=== PATIENT | female | born 1970 | race Caucasian/White ===

== ENCOUNTER 2019-10-21 12:32 | Outpatient (CLI) | payer BC, SELFPAY ==
--- NOTE | 2019-10-21 12:15 | XRR_ITS ---
PROCEDURE INFORMATION: Exam: XR Abdomen, 1 View Exam date and time: 10/21/2019 12:48 PM Age: 49 years old Clinical indication: Condition or disease; Kidney or ureter condition; Calculus (stone) in ureter; Prior surgery; Surgery date: 6+ months; Surgery type: Hyst/ tubal; Patient HX: Follow up; Additional info: Ureteral stone TECHNIQUE: Imaging protocol: XR of the abdomen. Views: Frontal supine view of the abdomen. 1 View. COMPARISON: CR XR KUB [id number] 10/16/2018 1:56 PM FINDINGS: Gastrointestinal tract: The bowel gas pattern is nonspecific. No bowel dilation. Organs: Bowel material overlies both kidneys. Again noted is a 2 mm calcified stone in the projection of the lower pole collecting system of the right kidney this finding is stable compared to prior examination. This finding resides between the soft L2 and L3 transverse process level. Bones/joints: Unremarkable. XR/XR KUB [id number] IMPRESSION: 1. No acute findings. 2. Stable 2 mm right renal caliceal stone
== END 2019-10-21 12:33 | disposition home or self-care (01) ==
LOC: RAD 12:37
PROVIDERS: PCP Nurse Practitioner Family; Visit Provider Urology
DX: N20.1 Calculus of ureter (principal); N20.0 Calculus of kidney
CPT/HCPCS: 74018; 81001

== ENCOUNTER 2020-05-03 12:40 | Outpatient (CLI) | payer BC, SELFPAY ==
--- NOTE | 2020-05-03 13:00 | XR_ITS ---
WS: [id number] HIP WITH PELVIS LEFT TECHNIQUE: 3 views of the left hip with pelvis CLINICAL INFORMATION: PAIN IN LEFT HIP COMPARISON: None. FINDINGS: Moderate degenerative arthritis left hip with joint space narrowing. No acute fractures. Normal femor al neck. Left pelvic phleboliths. XR/XR hip LT 2-3V wo/w pel* [id number] IMPRESSION: Moderate degenerative arthritis left hip with joint space narrowing. No acute f ractures.
== END 2020-05-03 12:41 | disposition home or self-care (01) ==
LOC: RADWPI 12:43
PROVIDERS: PCP Nurse Practitioner Family; Visit Provider Nurse Practitioner Family
DX: R26.89 Other abnormalities of gait and mobility (principal); M16.12 Unilateral primary osteoarthritis, left hip
CPT/HCPCS: 73502

== ENCOUNTER 2020-06-07 15:11 | Outpatient (CLI) | payer BC, SELFPAY ==
--- NOTE | 2020-06-07 15:14 | MM_ITS ---
WS: [id number] BILATERAL DIGITAL SCREENING MAMMOGRAPHY WITH CAD CLINICAL INFORMATION: SCREENING HISTORY: Screening mammogram. No current complaints. COMPARISON: TECHNIQUE: Bilateral CC and MLO views. FINDINGS: Scattered fibroglandular densities bilaterally. No suspicious focal mass, asymmetry, calcifications, or architectural distortion. No evidence of malignancy. MM/[id number] IMPRESSION: BI-RADS: 1-Negative FOLLOW UP: 1 Year Follow-up Recommend return to annual screening mammography.
== END 2020-06-07 15:12 | disposition home or self-care (01) ==
LOC: RADSHAW 15:12
PROVIDERS: PCP Nurse Practitioner Family; Visit Provider Nurse Practitioner Family
DX: Z12.31 Encounter for screening mammogram for malignant neoplasm of breast (principal)
CPT/HCPCS: 77067

== ENCOUNTER 2022-01-09 15:12 | Outpatient (CLI) | payer BC, SELFPAY ==
--- NOTE | 2022-01-09 15:30 | XR_ITS ---
WS: [id number] KUB, AP view, 01/11/2022 Clinical Data: Urolithiasis Comparison: KUB, 10/21/2019. Findings: No abnormal intraabdominal masses or calcifications are seen. There is no dilatated small bowel or ev idence of obstruction. There is a moderate amount of fecal material throughout the colon. XR/XR KUB [id number] Impression: Negative KUB.
== END 2022-01-09 15:13 | disposition home or self-care (01) ==
LOC: RAD 15:13
PROVIDERS: PCP Nurse Practitioner Family; Visit Provider Urology
DX: N20.9 Urinary calculus, unspecified (principal)
CPT/HCPCS: 74018; 81003

== ENCOUNTER 2023-11-14 08:51 | Outpatient (CLI) | payer BC, SELFPAY ==
--- NOTE | 2023-11-14 09:00 | MM_ITS ---
WS: [id number] SCREENING DIGITAL TOMOSYNTHESIS MAMMOGRAM WITH CAD HISTORY: SCREENING COMPARISON: 06/07/2020, 08/12/2014 Bilateral CC and MLO with tomosynthesis views submitted. Synthetic mammography reviewed. Computer aid ed detection analyzed. Breast composition: There are scattered areas of fibroglandular density. No suspicious masses, microc alcifications or architectural distortion. MM/[id number] IMPRESSION: BI-RADS: 1-Negative FOLLOW UP: 1 Year Follow-up
== END 2023-11-14 08:52 | disposition home or self-care (01) ==
LOC: RAD 08:53
PROVIDERS: PCP Nurse Practitioner Family; Visit Provider Nurse Practitioner Family
DX: Z12.31 Encounter for screening mammogram for malignant neoplasm of breast (principal)
CPT/HCPCS: 77063; 77067

== ENCOUNTER 2023-11-26 16:11 | Outpatient (CLI) | payer BC, SELFPAY ==
--- NOTE | 2023-11-26 16:14 | US_ITS ---
WS: [id number] US pelvis lmt w transvag HISTORY: Ovarian cyst, partial hysterectomy. COMPARISON: None available. Status post partial hysterectomy. The uterus has been removed. No midline mass. No fluid. Right ovary: 1.5 cm x 1.9 cm x 1.7 cm. Small atrophic ovary, no cystic or solid masses. Left ovary: Not visualized. No adnexal mass. No free fluid in the cul-de-sac. US/US pelvis lmt w transvag IMPRESSION: 1. No ovarian cyst. 2. Partial hysterectomy. Uterus has been removed. 3. Small atrophic RIGHT ovary. 4. LEFT ovary not identified.
== END 2023-11-26 16:12 | disposition home or self-care (01) ==
LOC: RAD 16:11
PROVIDERS: PCP Nurse Practitioner Family; Visit Provider Nurse Practitioner Family
DX: N83.209 Unspecified ovarian cyst, unspecified side (principal); Z90.711 Acquired absence of uterus with remaining cervical stump; N83.311 Acquired atrophy of right ovary
CPT/HCPCS: 76830; 76857